=== PATIENT | male | born 1955 | race Caucasian/White ===

== ENCOUNTER 2022-10-02 08:38 | Outpatient (CLI) | payer MEDICARE, OTHER | END 2022-10-02 08:39 | disposition home or self-care (01) | LOC: NAV RAD 08:38 | PROVIDERS: ATTEND Nurse Practitioner Family | DX: M54.9 Dorsalgia, unspecified (principal); M47.816 Spondylosis without myelopathy or radiculopathy, lumbar region; M47.814 Spondylosis without myelopathy or radiculopathy, thoracic region | CPT/HCPCS: 72072; 72100 ==

== ENCOUNTER 2025-04-10 14:51 | Emergency (ER) | payer MEDICARE ==
[2025-04-10] MEDS ORDERED: Aspirin Chewable 81 MG TAB ONE (15:07)
[2025-04-10 15:18] LABS: #Basophils 0.2 thou/uL (0.0-0.2); #Eosinophils 0.1 thou/uL (0.0-0.7); #Lymphocytes 1.1 thou/uL (1.20-3.40); #Monocytes 1.1 thou/uL (0.11-0.59); #Neutrophils 8.3 thou/uL (1.40-6.50); %Basophils 1.8 % (0.0-1.0); %Eosinophils 1.2 % (0.0-10.0); %Lymphocytes 10.2 % (21.0-51.0); %Monocytes 10.2 % (0.0-10.0); %Neutrophils 76.7 % (42.0-75.0); Hematocrit 35.7 % (42.0-52.0); Hemoglobin 12.6 g/dL (14.0-18.0); Mean Corpuscular Hemoglobin 30.5 pg (27.0-31.0); Mean Corpuscular Volume 86.2 fl (78.0-98.0); Platelet Count 327 10x3/uL (130-400); Red Blood Cell (RBC) Count 4.14 mill/uL (4.70-6.10); White Blood Cell (WBC) Count 10.8 10x3/uL (4.8-10.8)
[2025-04-10 15:31] LABS: ALT (SGPT) 9 U/L (Less than 45); AST (SGOT) 18 U/L (11-34); Albumin 4.2 g/dL (3.1-4.5); Alkaline Phosphatase 28 U/L (40-110); Anion Gap 17 mmol/L (10-20); BUN (Urea Nitrogen) 17 mg/dL (8.4-25.7); Bilirubin, Total 1.3 mg/dL (0.3-1.2); Calc. Creatinine Clearance 0 mL/min (70-130); Calcium 9.5 mg/dL (7.8-10.44); Carbon Dioxide 23 mmol/L (23-31); Chloride 105 mmol/L (98-107); Globulin 3.0 g/dL (2.4-3.5); Glucose 156 mg/dL (80-115); Magnesium 1.4 mg/dL (1.6-2.6); Potassium 4.5 mmol/L (3.5-5.1); Sodium 140 mmol/L (136-145)
[2025-04-10 15:34] LABS: Troponin I Less than 0.010 ng/mL (< 0.028)
[2025-04-10] MEDS ORDERED: Magnesium 2 GM/50 ML BAG (IN WATER) ONE (16:07)
[2025-04-10 16:17] LABS: Glucose, Urine (Dipstick) Negative (Negative); Leukocyte Negative (Negative); Protein, Urine (Dipstick) > or equal to 300 mg/dL (Neg-Trace); Specific Gravity, Urine 1.025 (1.005-1.030)
[2025-04-10 16:27] LABS: CAUTI Indications for Culture Alt mental st,lethar; RBC/HPF 0-3 HPF (0-3)
[2025-04-10 16:28] LABS: Bacteria/HPF 3+ HPF (None Seen)
[2025-04-10 16:29] LABS: Urine Culture Reflex No No
[2025-04-10] MEDS ORDERED: Magnesium Oxide 400 MG TAB PO SCH (16:30)
[2025-04-10 17:28] LABS: Anion Gap 12 mmol/L (10-20); BUN (Urea Nitrogen) 18 mg/dL (8.4-25.7); Calc. Creatinine Clearance 0 mL/min (70-130); Calcium 8.4 mg/dL (7.8-10.44); Carbon Dioxide 24 mmol/L (23-31); Chloride 108 mmol/L (98-107); Glucose 145 mg/dL (80-115); Magnesium 1.4 mg/dL (1.6-2.6); Potassium 4.6 mmol/L (3.5-5.1); Sodium 139 mmol/L (136-145)
[2025-04-10 17:31] LABS: Troponin I Less than 0.010 ng/mL (< 0.028)
== END 2025-04-10 18:25 | disposition home or self-care (01) ==
LOC: NAV ERS 14:51
DX: N17.9 Acute kidney failure, unspecified (principal); E86.0 Dehydration; E86.1 Hypovolemia; R19.7 Diarrhea, unspecified; R29.700 NIHSS score 0; I10 Essential (primary) hypertension; E11.9 Type 2 diabetes mellitus without complications; E78.5 Hyperlipidemia, unspecified; F41.9 Anxiety disorder, unspecified; F32.A Depression, unspecified; Z86.73 Personal history of transient ischemic attack (TIA), and cerebral infarction without residual deficits; Z79.84 Long term (current) use of oral hypoglycemic drugs; Z79.899 Other long term (current) drug therapy
CPT/HCPCS: 36415; 71045; 80053; 81001; 83735; 83880; 84443; 84484; 85025; 93005; 94760; 96360; 96361; J3475; J7030